=== PATIENT | male | born 1975 | race Caucasian/White ===

== ENCOUNTER 2018-11-30 17:47 | Emergency (ER) | payer OTHER ==
[~2018-11-30] VITALS: Ht 162.6 cm; Wt 72.1 kg
[2018-11-30 17:55] VITALS: Ht 162.6 cm; Wt 72.1 kg
[2018-11-30 19:50] VITALS: BP 130/80
== END 2018-11-30 19:50 | disposition home or self-care (01) ==
LOC: ED 17:47
DX: L30.9 Dermatitis, unspecified (principal)
CPT/HCPCS: J7512

== ENCOUNTER 2019-01-19 15:28 | Emergency (ER) | payer OTHER ==
[~2019-01-19] VITALS: Ht 162.6 cm; Wt 73.9 kg
[2019-01-19 15:31] VITALS: BP 118/83; Ht 162.6 cm; Wt 73.9 kg
== END 2019-01-19 16:17 | disposition home or self-care (01) ==
LOC: ED 15:28
DX: M79.642 Pain in left hand (principal); M79.641 Pain in right hand

== ENCOUNTER 2020-02-07 01:40 | Emergency (ER) | payer OTHER ==
[~2020-02-07] VITALS: Ht 162.6 cm; Wt 87.1 kg
[2020-02-07 02:40] VITALS: BP 150/90
== END 2020-02-07 02:38 | disposition home or self-care (01) ==
LOC: ED 01:40
DX: M25.551 Pain in right hip (principal)
CPT/HCPCS: J1885